=== PATIENT | male | born 1975 | race Caucasian/White ===

== ENCOUNTER 2022-08-26 09:18 | Emergency (ER) | payer SELFPAY ==
--- NOTE | ~2022-08-26 | XR_ITS ---
EXAMINATION: XR chest 2V DATE: 08/26/2022 09:59 INDICATION: Cough. Smoker. TECHNIQUE: Frontal and lateral views of the chest were obtained. COMPARISON: None. FINDINGS: The chest demonstrates clear lungs without pneumonia, pleural effusion, or pneumothorax. Th e heart size is normal. IMPRESSION: 1. No acute cardiopulmonary disease. Reviewed, dictated and finalized at location A. GENCY DISPATCHER
[2022-08-26 09:26] VITALS: BP 128/90; PULSE 81; RESP 14; TEMP 36.6; O2SAT 99
--- NOTE | 2022-08-26 09:32 | ED.NAVMDI ---
HPI - Nausea/Vomiting/Diarrhea General Chief complaint: Nausea/Vomiting/Diarrhea Stated complaint: nausea diarrhea Time Seen by Provider: 08/26/22 09:33 Source: patient and RN notes reviewed Mode of arrival: ambulatory Limitations: no limitations History of Present Illness HPI Narrative: 46-year-old male presents concern for 2 day history of diarrhea, nausea, vomiting, body aches, chills, sweats, runny nose, stuffy nose, cough. He reports he was treated for pneumonia at [facility] on August 04. Reports he finished the antibiotics he was given and felt mostly better. He reports he has been exposed to COVID and flu. He has not taken any medications at home, including the Zofran he was prescribed in the emergency room MD elicited complaint: nausea, vomiting and diarrhea Related Data Allergies Allergy/AdvReac Type Severity Reaction Status Date / Time No Known Allergies Allergy Unverified 03/20/18 11:59 Review of Systems Review of Systems: CONSTITUTIONAL: Reports malaise, chills, sweats ENT: Reports rhinorrhea, congestion. Denies sinus pain, otalgia or sore throat. CARDIOVASCULAR: Denies chest pain, palpitations, or edema. RESPIRATORY: Reports cough. Denies dyspnea. GASTROINTESTINAL: Denies abdominal pain. Reports nausea, vomiting, diarrhea GENITOURINARY: Denies dysuria or hematuria. MUSCULOSKELETAL: Reports myalgia. NEUROLOGIC: Denies headache. All systems reviewed & are unremarkable except as noted in HPI and below PMFSH Comments At time of signature, agree with nursing past medical, surgical, social and family history. There is no relevant family history pertinent to the presenting complaint Exam Narrative: GENERAL: Well-appearing, well-nourished, and in no acute distress. HEAD: Normocephalic EYES: PERRLA, conjunctivae clear ENT: Nares clear, turbinates edematous and erythematous, clear discharge. Mucous membranes moist. TM pearly st with dull light reflex bilaterally; no tragal tenderness. Oropharynx erythematous without lesions. Tonsils enlarged and without exudate, no drooling, no hoarseness, no trismus, uvula midline. NECK: Supple. No lymphadenopathy CHEST: Clear to auscultation, breath sounds equal. No wheezing, rhonchi, rales, or stridor. No respiratory distress, speaks in full sentences. HEART: Regular rate and rhythm. No murmur heard. ABD: Soft, bowel sounds active in all 4 quadrants, nontender SKIN: Warm, dry, no rash. NEURO: Alert and oriented x3. PSYCH: Normal mood and affect Course Course Emergency Course: Patient is aware of diagnosis, understands and agrees to treatment plan. Anticipatory guidance given. Patient agrees to follow-up as directed and is aware of reasons to seek care at the emergency department. Portions of this record may have been created with voice recognition software Level of Care: Express Care Visit Vital Signs Vital signs: Vital Signs Temperature 97.9 F 08/26/22 09:26 Pulse Rate 81 08/26/22 09:26 Respiratory Rate 14 08/26/22 09:26 Blood Pressure 128/90 08/26/22 09:26 Pulse Oximetry 99 08/26/22 09:26 Oxygen Delivery Room Air 08/26/22 09:26 Temperature 97.9 F 08/26/22 09:26 Pulse Rate 81 08/26/22 09:26 Respiratory Rate 14 08/26/22 09:26 Blood Pressure 128/90 08/26/22 09:26 Pulse Oximetry 99 08/26/22 09:26 Oxygen Delivery Room Air 08/26/22 09:26 Reviewed. MDM - Nausea/Vomiting/Diarrhea MDM Narrative Medical decision making narrative: Differential diagnosis considered: Acute abdomen, Sharma virus, strep pharyngitis, allergic rhinitis, upper respiratory tract infection, sinusitis, rhinosinusitis, nasopharyngitis. viral pharyngitis, otitis media, otitis externa, pneumonia, bronchitis, viral cough syndrome, viral syndrome, and influenza. Exam findings show no acute concerns or changes; patient is non-toxic appearing and is in no distress. Patient is appropriate for outpatient treatment and follow-up. Imaging D
== END 2022-08-26 10:16 | disposition home or self-care (01) ==
PROVIDERS: Emergency Provider Nurse Practitioner
DX: U07.1 COVID-19 (principal)
CPT/HCPCS: 71046; 87426; 87804; 99203; C9803; G0463

== ENCOUNTER 2024-08-25 16:15 | Emergency (ER) | payer OTHER, SELFPAY ==
[2024-08-25 16:20] VITALS: BP 170/90; PULSE 85; RESP 20; TEMP 36.7; O2SAT 100
--- NOTE | 2024-08-25 16:28 | ED_ITS ---
HPI - Dental/Oral General Chief complaint: Dental/Oral Stated complaint: Toothache Time Seen by Provider: 08/25/24 16:28 Source: patient Mode of arrival: ambulatory History of Present Illness HPI Narrative: 48-year-old male presented of lower dental pain worsening over the past 3 days. Endorses poor dentition throughout. States the tooth is broken. He has taken ibuprofen. Unable To get into a dentist any time soon. MD Complaint: tooth pain Related Data Allergies Allergy/AdvReac Type Severity Reaction Status Date / Time No Known Allergies Allergy Verified 08/25/24 16:21 Review of Systems Review of Systems: CONSTITUTIONAL: Denies body aches, fever, chills ENT: Denies rhinorrhea, congestion, sore throat, or otalgia. Reports dental pain CARDIOVASCULAR: Denies chest pain, palpitations RESPIRATORY: Denies cough or dyspnea. SKIN: Denies rash, itching, or wounds. MUSCULOSKELETAL: Denies myalgia. NEUROLOGIC: Denies headache, numbness, tingling, or weakness. PMFSH Comments At time of signature, I have reviewed and agree with nursing past medical, surgical, social and family history unless otherwise noted. Please see nursing chart for further information. There is no relevant family history pertinent to the presenting complaint Exam Narrative: GENERAL: Appears in pain; no acute distress. EYES: EOMI. No redness or drainage. Conjunctivae normal. ENT: Dental pain location of #29, mild gum swelling and erythema, tooth is broken and decaying. poor dentition throughout with Multiple decayed or missing teeth. Mucous membranes pink and moist. TMs normal bilaterally. Throat normal. no dysphagia, odynophagia, dysphonia, or dyspnea. No uvular deviation or soft pa late edema. NECK: Normal AROM. No lymphadenopathy. no induration below mandible, no neck pain. CHEST: No respiratory distress. Clear to auscultation. HEART: Regular rate and rhythm. SKIN: Warm, dry, no rash. Normal skin turgor. NEURO: No focal deficits. Alert and oriented x3. Gait steady. Course Course Emergency Course: Patient is aware of diagnosis, understands and agrees to treatment plan. Anticipatory guidance given. Patient agrees to follow-up as directed and is aware of reasons to seek care at the emergency department. Portions of this record may have been created with voice recognition software Level of Care: Express Care Visit MDM - Dental/Oral MDM Narrative Medical decision making narrative: Patients pain and complaint coupled with physical findings are consistent with dental abscess. There are no focal signs of space occupying lesions that are compromising to the airway; Patient is non-toxic appearing. The floor of the mouth is soft with no signs of Andrei's Angina; Patient is without trismus or drooling and able to swallow secretions. Patient is felt appropriate for discharge home with dental follow up. Differential Diagnosis Differential diagnosis: Likely gingival abscess, dental caries, toothache, dental abscess, fracture of tooth and aphthous ulcer Discharge Plan Discharge Clinical Impression: Dental abscess Patient Disposition: Home, Self-Care Condition: Stable Instructions: Antibiotic Form, Dental Abscess (ED) Additional Instructions: Take antibiotic as directed May apply heat or ice to the face Gentle brushing and flossing. Rinse mouth with warm salt water at least 2 times a day. Alternate Tylenol and ibuprofen as needed for pain Follow-up with the dentist as soon as possible--see the list provided Go to the ER for worsening symptoms or concerns Patient Language: Chadian Prescriptions: New ibuprofen 800 mg tablet 800 mg PO TID PRN (Reason: pain) Qty: 15 0RF lidocaine HCl [Lidocaine Viscous] 2 % solution 1 applic mucous membrane TID PRN (Reason: pain) Qty: 100 0RF Rx Instructions: apply with cotton swab to site of pain amoxicillin-pot clavulanate 875-125 mg tablet 1 tablet PO Q12H 7 Days Qty: 14 0RF Follow-up/Referrals: Kacy,Risa San [facility]N [Primary Care Provider] - Stand Alone Forms: Work/School Release IP Time of Disposition: 16:34
== END 2024-08-25 16:35 | disposition home or self-care (01) ==
PROVIDERS: Emergency Provider Nurse Practitioner Family; PCP Nurse Practitioner Family
DX: K04.7 Periapical abscess without sinus (principal)
CPT/HCPCS: 99213; G0463